=== PATIENT | female | born 1960 | race Caucasian/White ===

== ENCOUNTER 2016-12-01 10:39 | Inpatient (IN) | payer MEDICAID ==
[~2016-12-01] VITALS: Ht 175.3 cm; Wt 156.0 kg
[~2016-12-01 10:39] MED LIST: ACET325T21 PO; ACET325T26 PO; ASCO500T6 PO; ASPI325T4 PO; ATOR10TA9 PO; CYCL-259 PO; DIAZ5TAB4 PO; ENOX40SY4 SQ; ESCI10TA PO; HYDR-3138 PO; IBUP200C PO; INSU100I18 SQ-INSULIN; INSU100I28 SQ-INSULIN; LISI-170 PO; MAGN400T36 PO; MAGN64TA9 PO; METF10002 PO; METO25TA35 PO; MULT-717 PO; MULT-750 PO; NAPR1TAB21 PO; PIOG15TA4 PO; POTA90TA2 PO; REPA1TAB6 PO; VITA150T PO; ZINC220C5 PO
[2016-12-01] MEDS ORDERED: SODIUM CHLORIDE 0.9% 1,000 ML IV ONE (10:51)
[2016-12-01] MEDS ORDERED: SODIUM CHLORIDE FLUSH 10ML SYR IVF ONE (11:00)
[2016-12-01 11:41] LABS: ASPARTATE AMINO TRANSFERASE 33 U/L (15-37); BLOOD UREA NITROGEN 14 mg/dL (7-18)
[2016-12-01] MEDS ORDERED: SODIUM CHLORIDE FLUSH 10ML SYR IVF PRN (16:30)
[2016-12-01] MEDS ORDERED: GLUCAGON 1 MG IM PRN (18:00)
[2016-12-01] MEDS ORDERED: POLYETHYLENE GLYCOL 17 GM PACKET PO PRN (18:00)
[2016-12-01] MEDS ORDERED: ENOXAPARIN 40 MG/0.4 ML SQ SCH (18:00)
[2016-12-01] MEDS ORDERED: CYCLOBENZAPRINE 10 MG TABLET PO PRN (18:00)
[2016-12-01] MEDS ORDERED: DOCUSATE 100 MG CAPSULE PO PRN (18:00)
[2016-12-01] MEDS ORDERED: DEXTROSE 4 GM TAB.CHEW PO PRN (18:00)
[2016-12-01] MEDS ORDERED: POTASSIUM CHLORIDE 20 MEQ TAB.ER.PRT PO ONE (18:00)
[2016-12-01] MEDS ORDERED: ACETAMINOPHEN 325 MG TABLET PO PRN ×2 (18:00)
[2016-12-01] MEDS ORDERED: DEXTROSE 50%, 50ML SYRINGE IVPush PRN (18:00)
[2016-12-01] MEDS ORDERED: BISACODYL 10 MG SUPP PR PRN (18:00)
[2016-12-01] MEDS ORDERED: POTASSIUM CHLORIDE 20 MEQ TAB.ER.PRT ONE (18:26)
[2016-12-01] MEDS ORDERED: WARFARIN 5 MG TABLET PO-COUM ONE (18:47)
[2016-12-01 18:54] VITALS: BP 129/70
[2016-12-01] MEDS ORDERED: INSULIN DETEMIR 100 UNITS/ML, PEN SQ-INSULIN SCH (21:00)
[2016-12-01] MEDS ORDERED: ATORVASTATIN 10 MG TABLET PO SCH (21:00)
[2016-12-01] MEDS: SODIUM CHLORIDE FLUSH 10ML SYR IVF SCH (21:15)
[2016-12-01] MEDS: INSULIN ASPART 100 UNITS/ML, PEN SQ-INSULIN SCH ×2 (21:16→21:18)
[2016-12-02 02:50] VITALS: BP 129/61
[2016-12-02 05:30] LABS: BLOOD UREA NITROGEN 16 mg/dL (7-18)
[2016-12-02] MEDS: INSULIN ASPART 100 UNITS/ML, PEN SQ-INSULIN SCH (07:00)
[2016-12-02 08:42] VITALS: BP 139/69
[2016-12-02] MEDS: SODIUM CHLORIDE FLUSH 10ML SYR IVF SCH (08:45)
[2016-12-02] MEDS ORDERED: ASCORBIC ACID 500 MG TABLET PO SCH (09:00)
[2016-12-02] MEDS ORDERED: INSULIN DETEMIR 100 UNITS/ML, PEN SQ-INSULIN SCH ×3 (09:00→21:00)
[2016-12-02] MEDS ORDERED: CITALOPRAM 20 MG TABLET PO SCH (09:00)
[2016-12-02] MEDS ORDERED: CALC-47 PO (10:15)
[2016-12-02] MEDS ORDERED: WARF4TAB PO (10:18)
[2016-12-02] MEDS ORDERED: BACL20TA PO (10:18)
[2016-12-02] MEDS ORDERED: DOCU100C8 PO (10:21)
[2016-12-02] MEDS ORDERED: METO5TAB5 PO (10:21)
[2016-12-02] MEDS ORDERED: WARF3TAB7 PO (10:36)
[2016-12-02] MEDS ORDERED: VITA1TAB67 PO (10:43)
[2016-12-02] MEDS ORDERED: L.AC1CAP6 PO (10:43)
[2016-12-02] MEDS ORDERED: [UNRECOGNIZED DRUG - CODE] PO (10:43)
[2016-12-02] MEDS ORDERED: WARF2.5T73 PO (10:43)
[2016-12-02] MEDS ORDERED: GABA-826 PO (10:43)
[2016-12-02] MEDS ORDERED: INSULIN ASPART 100 UNITS/ML, PEN SQ-INSULIN SCH ×3 (11:00)
[2016-12-02] MEDS ORDERED: METOLAZONE 5 MG TABLET PO SCH (11:30)
[2016-12-02] MEDS ORDERED: POTASSIUM CHLORIDE 20 MEQ TAB.ER.PRT PO ONE (11:30)
[2016-12-02] MEDS ORDERED: NITR50CA11 PO (14:06)
[2016-12-02] MEDS ORDERED: POTA20PA8 PO (14:06)
[2016-12-02 14:50] VITALS: BP 143/85
[2016-12-02] MEDS ORDERED: NITROFURANTOIN 50 MG CAPSULE PO SCH (16:00)
[2016-12-02] MEDS ORDERED: WARFARIN 2.5 MG TABLET PO-COUM SCH (18:00)
[2016-12-03] MEDS ORDERED: METOLAZONE 5 MG TABLET PO SCH (09:00)
== END 2016-12-02 15:21 | disposition home or self-care (01) | DRG 394 ==
LOC: ED 11:57 → EDIP 16:21 → 4NOR 18:38
PROVIDERS: ADMIT Internal Medicine; ATTEND Internal Medicine
PROC: 0T9B70Z Drainage of Bladder with Drainage Device, Via Natural or Artificial Opening (ICD-10-PCS; principal; 2016-12-01)
DX: K64.9 Unspecified hemorrhoids (principal); K61.1 Rectal abscess; N30.90 Cystitis, unspecified without hematuria; E87.6 Hypokalemia; I10 Essential (primary) hypertension; E11.42 Type 2 diabetes mellitus with diabetic polyneuropathy; E78.5 Hyperlipidemia, unspecified; Z66 Do not resuscitate; F32.9 Major depressive disorder, single episode, unspecified; K59.09 Other constipation; Z86.718 Personal history of other venous thrombosis and embolism; Z83.3 Family history of diabetes mellitus; Z86.711 Personal history of pulmonary embolism; Z90.710 Acquired absence of both cervix and uterus; Z79.899 Other long term (current) drug therapy; Z79.2 Long term (current) use of antibiotics; Z79.01 Long term (current) use of anticoagulants
CPT/HCPCS: 36415; 74176; 80048; 80053; 81001; 82962; 83605; 83690; 85025; 85610; 85730; 87040; 87077; 87086; 99285; J1815

== ENCOUNTER → 2018-01-13 | Outpatient (CLI) | payer MEDICARE, MEDICAID ==
[~2018-01-13] MED LIST changes: +ASPI325T17 PO; -ASPI325T4 PO; +BACL20TA PO; +CALC-47 PO; +DOCU100C33 PO; +GABA-826 PO; -HYDR-3138 PO; +HYDR-3237 PO; +IBUP-1623 PO; -IBUP200C PO; +L.AC1CAP6 PO; -MAGN64TA9 PO; +MAGNESIUM DR64 MG PO; +METO5TAB5 PO; +NITR50CA11 PO; +POTA20PA25 PO; +VITA1TAB67 PO; +WARF2.5T73 PO; +WARF3TAB52 PO; +WARF4TAB PO; +[UNRECOGNIZED DRUG - CODE] PO
== END | disposition home or self-care (01) ==
LOC: CFH 07:24
PROVIDERS: ATTEND Nurse Practitioner Family
DX: K22.4 Dyskinesia of esophagus (principal); E11.9 Type 2 diabetes mellitus without complications
CPT/HCPCS: 74220